=== PATIENT | male | born 1955 | race Caucasian/White ===

== ENCOUNTER 2017-01-15 16:20 | Emergency (ER) | payer BC, OTHER ==
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
[2017-01-15] MEDS ORDERED: HYDROmorphone 1 MG/ML 1 ML SYRINGE IVP STA (16:43)
[2017-01-15] MEDS ORDERED: SODIUM CHLORIDE 0.9% 1,000 ML IV SCH (16:45)
[2017-01-15 16:57] LABS: Basophils % (A) 0 %; CH 32.7; Eosinophils # (A) 0.1 k/uL (0-0.7); Eosinophils % (A) 1 %; HCT 40.9 % (39.0-53.0); HDW 2.68; Luc % (Auto) 2; Lymphocytes % (A) 18 %; MCH 31.2 pg (25.0-35.0); MCHC 34.3 g/dL (31.0-37.0); MCV 91.2 fL (80.0-100.0); Monocytes # (A) 0.3 k/uL (0-1.0); Monocytes % (A) 5 %; Neutrophils # (A) 3.9 k/uL (1.3-7.7); Neutrophils % (A) 73 %; RBC 4.48 m/uL (4.30-5.90); RDW 12.5 % (11.5-15.5); WBC 5.3 k/uL (3.8-10.6); WBC (Perox) 5.24
[2017-01-15 17:02] LABS: INR 1.1 (<1.1); Partial Thromboplastin Time 26.7 sec (22.0-30.0); Prothrombin Time 11.1 sec (9.0-12.0)
[2017-01-15 17:03] LABS: ALT 32 U/L (21-72); AST 28 U/L (17-59); Alkaline Phosphatase 83 U/L (38-126); Anion Gap 14 mmol/L; Blood Urea Nitrogen 16 mg/dL (9-20); Calcium 9.6 mg/dL (8.4-10.2); Carbon Dioxide 23 mmol/L (22-30); Chloride 102 mmol/L (98-107); Creatine Kinase 248 U/L (55-170); Glucose 105 mg/dL (74-99); Non-African American GFR(MDRD) >60 (>60 ml/min/1.73 sqM); Potassium 3.8 mmol/L (3.5-5.1); Sodium 139 mmol/L (137-145); Total Bilirubin 0.9 mg/dL (0.2-1.3); Total Protein 7.3 g/dL (6.3-8.2)
[2017-01-15] MEDS ORDERED: ONDANSETRON 4 MG/2 ML VIAL IM STA (17:21)
--- NOTE | 2017-01-15 17:27 | CT ---
EXAMINATION TYPE: CT brain cspine wo con DATE OF EXAM: 01/15/2017 5:17 PM COMPARISON: CT brain and cervical spine June 21, 2016 HISTORY: Pt states of crushing injury to leg today. C/O BERKOWITZ. CT DLP: 540.0 mGycm. Automated Exposure Control for Dose Reduction was Utilized. TECHNIQUE: CT scan of the head and cervical spine are performed without contrast. FINDINGS: There is no acute intracranial hemorrhage, mass effect, or midline shift identified. The ventricles and sulci are within normal limits in size. The globes are intact and the visualized sin uses are clear. The calvarium is intact. Cervical spine is visualized in its entirety from C1 through upper thoracic levels and demonstrates s traightened alignment without evidence of acute fracture or dislocation. Prevertebral soft tissue ap pears within normal limits. The C1-C2 articulation is within normal limits on the coronal images. Vertebral body heights are maintained. There is mild to moderate spurring and disc space narrowiat-C6 and C6-C7 levels redemonstrated. Spinal canal is fairly well preserved. Review of axial images shows no new large new disc herniation. Lung apices are clear bilaterally. Thyroid gland is normal in size . Surgical change through healed mandible is redemonstrated. IMPRESSION: 1. There is no acute fracture or dislocation evident in the cervical spine. 2. No acute intracranial hemorrhage, mass effect, or midline shift is seen.
[2017-01-15] MEDS ORDERED: diphenhydrAMINE 50 MG/ML 1 ML VIAL IVP STA (18:11)
[2017-01-15] MEDS ORDERED: METOCLOPRAMIDE 5 MG/ML 2 ML VIAL IVP STA (18:11)
--- NOTE | 2017-01-15 18:27 | XR ---
EXAMINATION TYPE: XR hand complete LT DATE OF EXAM: 01/15/2017 6:09 PM CLINICAL HISTORY: Left hand pain after injury. TECHNIQUE: Frontal, lateral and oblique images of the left hand are obtained. COMPARISON: None. FINDINGS: There is no acute fracture/dislocation evident in the left hand. The joint spaces in the l eft hand appear within normal limits. Metallic ring overlies the fourth proximal phalanx mid shaft le jose. The overlying soft tissue appears unremarkable. IMPRESSION: There is no acute fracture or dislocation in the left hand.
--- NOTE | 2017-01-15 18:29 | XR ---
EXAMINATION TYPE: XR chest 1V DATE OF EXAM: 01/15/2017 6:09 PM COMPARISON: Prior chest x-ray June 21, 2016 HISTORY: Chest pain. TECHNIQUE: Single AP portable frontal upright view of the chest is obtained. FINDINGS: There is no focal air space opacity, pleural effusion, or pneumothorax seen. The cardiac silhouette size is within normal limits with atherosclerotic change in the aortic knob. The osseous structures are intact. IMPRESSION: No acute process.
--- NOTE | 2017-01-15 18:31 | XR ---
EXAMINATION TYPE: XR knee complete LT, XR tibia fibula LT, XR ankle complete LT DATE OF EXAM: 01/15/2017 6:09 PM CLINICAL HISTORY: Injury with pain TECHNIQUE: Three views of the left ankle and knee are obtained. 2 views of left leg are acquired COMPARISON: None. FINDINGS: There is no acute fracture/dislocation evident in left knee. There is mild joint space los s patellofemoral compartment. There is moderate-sized spur superiorly and anteriorly at distal quadr iceps tendon attachment. Some tibial condylar spurring is present. Increased density suprapatellar bu rsa is suggestive of moderate joint effusion, nonspecific finding. Images of left leg show no acute fracture or dislocation. Overlying soft tissue is unremarkable. Images of left ankle show no acute fracture or dislocation. Ankle mortise symmetry is preserved. Over lying soft tissue is unremarkable. IMPRESSION: There is no acute fracture or dislocation in the left ankle, leg, or knee.
--- NOTE | 2017-01-15 18:32 | XR ---
EXAMINATION TYPE: XR Hip LT and AP Pelvis DATE OF EXAM: 01/15/2017 6:09 PM COMPARISON: NONE HISTORY: Injury with pelvic and left hip pain TECHNIQUE: A single AP view of the pelvis is obtained. Two views of the left hip are obtained. FINDINGS: There is no acute fracture/dislocation evident in the pelvis. There is mild acetabular spu rring in both hips. There is cortical bump head neck junction bilaterally suggesting pincher-type VIKTORIA . Subchondral cystic change in both proximal femurs is noted. Sacroiliac joints are maintained. The o verlying soft tissue appears unremarkable. Two views of left hip show no acute fracture or dislocation. No focal lytic or sclerotic lesion seen in the proximal left femur. The overlying soft tissue is unremarkable. IMPRESSION: There is no acute fracture or dislocation in the pelvis or left hip.
[2017-01-15] MEDS ORDERED: RX INFO: IV CONTRAST WAS GIVEN 1 EACH MISC MISCELLANE PRN (18:39)
--- NOTE | 2017-01-15 20:15 | CT ---
EXAMINATION TYPE: CT angio lower extremity LT DATE OF EXAM: 01/15/2017 7:54 PM COMPARISON: NONE HISTORY: Pt states of crushing injury to left leg. Pain posterior to knee. CT DLP: 333.0 mGycm Automated exposure control for dose reduction was used. TECHNIQUE: Performed with IV Contrast, patient injected with 125 mL of Omnipaque 350. CTA exam with Three-D isabella nstructed images created on independent workstation and reviewed . FINDINGS: There is satisfactory flow seen in the distal superficial femoral artery extending in through the pop liteal artery in the left lower extremity. There is satisfactory bifurcation into the anterior tibial and tibial peroneal trunks. There is satisfactory subsequent bifurcation into the posterior tibial a nd peroneal arteries. There is good three-vessel flow to the distal leg level. There is no suspicious extravasation or focal hematoma to suggest arterial vascular injury. There is no acute fracture or dislocation of visualized distal femur or the visualized tibia and fibu la. There is asymmetric moderate size left patellar joint effusion. There is small size right suprapa tellar joint effusion. Muscle bulk in left leg is preserved. There is mild subcutaneous edema and sof t tissue swelling anterior medially over the left proximal diaphysis of the tibia near axial image 13 4 and coronal image 16 consistent with soft tissue contusion injury at this level. There is slightly poor contrast bolus or timing in the right lower extremity which is within normal l imits through trifurcation and then suboptimally evaluated below this. IMPRESSION: NO CTA EVIDENCE FOR SIGNIFICANT ARTERIAL VASCULAR INJURY IN THE LEFT LOWER EXTREMITY.
[2017-01-15 20:27] VITALS: BP 125/63; PULSE 69; RESP 18; TEMP 97.8
[2017-01-15] MEDS ORDERED: HYDROcodone/APAP 5-325MG 1 EACH TAB PO STA (21:18)
== END 2017-01-15 21:32 | disposition home or self-care (01) ==
LOC: EC 16:20
DX: S83.92XA Sprain of unspecified site of left knee, initial encounter (principal); I45.10 Unspecified right bundle-branch block; R11.0 Nausea; X50.1XXA Overexertion from prolonged static or awkward postures, initial encounter; Y93.89 Activity, other specified; Y92.59 Other trade areas as the place of occurrence of the external cause
CPT/HCPCS: 36415; 93005; 80053; 82550; 85025; 85610; 85730; 71010; 73502; 73130; 73590; 73562; 73610; 72125; 70450; 73706; 99285; 96374; 96375 ×2; 96361 ×5; 96372; J1200; J2765; Q9967; J2405; J1170

== ENCOUNTER 2018-07-20 18:12 | Emergency (ER) | payer OTHER ==
[2018-07-20] MEDS ORDERED: MORPHINE SULFATE 4 MG/ML SYRINGE IV STA (18:27)
[2018-07-20] MEDS ORDERED: SODIUM CHLORIDE 0.9% 1,000 ML IV STA ×2 (18:27)
--- NOTE | 2018-07-20 18:31 | ED ---
General Adult HPI - General Chief complaint: Chest Pain Stated complaint: Chest Pain Time Seen by Provider: 07/20/18 18:27 Source: patient, RN notes reviewed, old records reviewed Mode of arrival: wheelchair Limitations: no limitations - History of Present Illness Initial comments: this is a 63-year-old male the ER for evaluation of chest pain. Patient is no medical history. Patient chest pain prior to arrival he did take aspirin at home. Patient states chest pain did resolve now here in the emergency room. No travel history no sick contacts no fevers. Patient has no prior history of cardiac disease or prior cardiac evaluation. - Related Data Home Medications Medication Instructions Recorded Confirmed Aspirin [Adult Low Dose Aspirin EC] 81 mg PO DAILY 07/20/18 07/20/18 Ibuprofen [Motrin Ib] 600 mg PO Q6H PRN 07/20/18 07/20/18 Allergies Allergy/AdvReac Type Severity Reaction Status Date / Time No Known Allergies Allergy Verified 07/20/18 19:02 Review of Systems ROS Statement: Those systems with pertinent positive or pertinent negative responses have been documented in the HPI. ROS Other: All systems not noted in ROS Statement are negative. Past Medical History Past Medical History: No Reported History History of Any Multi-Drug Resistant Organisms: None Reported Additional Past Surgical History / Comment(s): facial reconstruction 2007 Past Psychological History: No Psychological Hx Reported Smoking Status: Never smoker Past Alcohol Use History: Occasional Past Drug Use History: None Reported General Exam Limitations: no limitations General appearance: alert, in no apparent distress Head exam: Present: atraumatic, normocephalic, normal inspection Eye exam: Present: normal appearance, PERRL, EOMI. Absent: scleral icterus, conjunctival injection, periorbital swelling ENT exam: Present: normal exam, mucous membranes moist Neck exam: Present: normal inspection. Absent: tenderness, meningismus, lymphadenopathy Respiratory exam: Present: normal lung sounds bilaterally. Absent: respiratory distress, wheezes, rales, rhonchi, stridor Cardiovascular Exam: Present: regular rate, normal rhythm, normal heart sounds. Absent: systolic murmur, diastolic murmur, rubs, gallop, clicks GI/Abdominal exam: Present: soft, normal bowel sounds. Absent: distended, tenderness, guarding, rebound, rigid Extremities exam: Present: normal inspection, full ROM, normal capillary refill. Absent: tenderness, pedal edema, joint swelling, calf tenderness Back exam: Present: normal inspection Neurological exam: Present: alert, oriented X3, CN II-XII intact Psychiatric exam: Present: normal affect, normal mood Skin exam: Present: warm, dry, intact, normal color. Absent: rash Course Vital Signs 07/20/18 07/20/18 07/20/18 18:22 19:15 20:15 Temperature 98.2 F 98.3 F Pulse Rate 72 65 Pulse Rate [ 74 Lehr Cutter ] Respiratory 24 18 16 Rate Blood Pressure 141/79 140/83 O2 Sat by Pulse 100 98 Oximetry EKG Findings - EKG Comments: EKG Findings:: EKG shows sinus rhythm rate of 72, NC 160, QRS 108, QTc 429 Medical Decision Making - Medical Decision Making 63 male with nonspecific chest pain. Take aspirin prior to arrival. No medical history no history of heart disease. Troponin negative. The ER CT negative. Patient states is a symptomatically can be discharged home - Lab Data Result diagrams: 07/20/18 18:50 07/20/18 18:50 Lab Results 07/20/18 07/20/18 07/20/18 Range/Units 18:50 18:50 18:50 WBC 4.6 (3.8-10.6) k/uL RBC 4.66 (4.30-5.90) m/uL Hgb 14.5 (13.0-17.5) gm/dL Hct 43.2 (39.0-53.0) % MCV 92.7 (80.0-100.0) fL MCH 31.1 (25.0-35.0) pg MCHC 33.5 (31.0-37.0) g/dL RDW 12.4 (11.5-15.5) % Plt Count 203 (150-450) k/uL Neutrophils % 62 % Lymphocytes % 25 % Monocytes % 8 % Eosinophils % 3 % Basophils % 0 % Neutrophils # 2.9 (1.3-7.7) k/uL Lymphocytes # 1.1 (1.0-4.8) k/uL Monocytes # 0.4 (0-1.0) k/uL Eosinophils # 0.1 (0-0.7) k/uL Basophils # 0.0 (0-0.2) k/uL PT (9.0-12.0) sec INR (<1.2) APTT (22.0-30.0) sec D-Dimer (<0.60) mg/L FEU Sodium 139 (137-145) mmol/L Potassium 4.2 (3.5-5.1) mmol/L Chloride 103 (98-107) mmol/L Carbon Dioxide 24 (22-30) mmol/L Anion Gap 12 mmol/L BUN 16 (9-20) mg/dL Creatinine 0.94 (0.66-1.25) mg/dL Est GFR (CKD-EPI)AfAm >90 (>60 ml/min/1.73 sqM) Est GFR (CKD-EPI)NonAf 88 (>60 ml/min/1.73 sqM) Glucose 90 (74-99) mg/dL Calcium 9.4 (8.4-10.2) mg/dL Magnesium 1.9 (1.6-2.3) mg/dL Total Bilirubin 0.6 (0.2-1.3) mg/dL AST 22 (17-59) U/L ALT 20 L (21-72) U/L Alkaline Phosphatase 75 (38-126) U/L Total Creatine Kinase 142 (55-170) U/L CK-MB (CK-2) 1.3 (0.0-2.4) ng/mL CK-MB (CK-2) Rel Index 0.9 Troponin I <0.012 (0.000-0.034) ng/mL NT-Pro-B Natriuret Pep pg/mL Total Protein 7.3 (6.3-8.2) g/dL Albumin 4.4 (3.5-5.0) g/dL Lipase 148 (23-300) U/L 07/20/18 07/20/18 Range/Units 18:50 18:50 WBC (3.8-10.6) k/uL RBC (4.30-5.90) m/uL Hgb (13.0-17.5) gm/dL Hct (39.0-53.0) % MCV (80.0-100.0) fL MCH (25.0-35.0) pg MCHC (31.0-37.0) g/dL RDW (11.5-15.5) % Plt Count (150-450) k/uL Neutrophils % % Lymphocytes % % Monocytes % % Eosinophils % % Basophils % % Neutrophils # (1.3-7.7) k/uL Lymphocytes # (1.0-4.8) k/uL Monocytes # (0-1.0) k/uL Eosinophils # (0-0.7) k/uL Basophils # (0-0.2) k/uL PT 10.4 (9.0-12.0) sec INR 1.1 (<1.2) APTT 26.5 (22.0-30.0) sec D-Dimer 0.20 (<0.60) mg/L FEU Sodium (137-145) mmol/L Potassium (3.5-5.1) mmol/L Chloride (98-107) mmol/L Carbon Dioxide (22-30) mmol/L Anion Gap mmol/L BUN (9-20) mg/dL Creatinine (0.66-1.25) mg/dL Est GFR (CKD-EPI)AfAm (>60 ml/min/1.73 sqM) Est GFR (CKD-EPI)NonAf (>60 ml/min/1.73 sqM) Glucose (74-99) mg/dL Calcium (8.4-10.2) mg/dL Magnesium (1.6-2.3) mg/dL Total Bilirubin (0.2-1.3) mg/dL AST (17-59) U/L ALT (21-72) U/L Alkaline Phosphatase (38-126) U/L Total Creatine Kinase (55-170) U/L CK-MB (CK-2) (0.0-2.4) ng/mL CK-MB (CK-2) Rel Index Troponin I (0.000-0.034) ng/mL NT-Pro-B Natriuret Pep 77 pg/mL Total Protein (6.3-8.2) g/dL Albumin (3.5-5.0) g/dL Lipase (23-300) U/L - Radiology Data Radiology results: report reviewed (CTA chest CT abdomen pelvis negative for acute disease), image reviewed Disposition Clinical Impression: Chest pain Disposition: HOME SELF-CARE Condition: Good Instructions: Chest Pain (ED) Is patient prescribed a controlled substance at d/c from ED?: No Referrals: Vamsi Brennan DO [Primary Care Provider] - 1-2 days
[2018-07-20] MEDS ORDERED: ONDANSETRON 4 MG/2 ML VIAL IVP STA (18:37)
[2018-07-20 19:05] LABS: Basophils % (A) 0 %; Eosinophils # (A) 0.1 k/uL (0-0.7); Eosinophils % (A) 3 %; HCT 43.2 % (39.0-53.0); HGB 14.5 gm/dL (13.0-17.5); Lymphocytes # (A) 1.1 k/uL (1.0-4.8); Lymphocytes % (A) 25 %; MCH 31.1 pg (25.0-35.0); MCHC 33.5 g/dL (31.0-37.0); MCV 92.7 fL (80.0-100.0); Monocytes # (A) 0.4 k/uL (0-1.0); Monocytes % (A) 8 %; Neutrophils # (A) 2.9 k/uL (1.3-7.7); Neutrophils % (A) 62 %; Platelet Count 203 k/uL (150-450); RBC 4.66 m/uL (4.30-5.90); RDW 12.4 % (11.5-15.5); WBC 4.6 k/uL (3.8-10.6)
[2018-07-20 19:11] LABS: ALT 20 U/L (21-72); AST 22 U/L (17-59); Albumin 4.4 g/dL (3.5-5.0); Alkaline Phosphatase 75 U/L (38-126); Anion Gap 12 mmol/L; Blood Urea Nitrogen 16 mg/dL (9-20); Calcium 9.4 mg/dL (8.4-10.2); Carbon Dioxide 24 mmol/L (22-30); Chloride 103 mmol/L (98-107); Glucose 90 mg/dL (74-99); Lipase 148 U/L (23-300); Magnesium 1.9 mg/dL (1.6-2.3); Potassium 4.2 mmol/L (3.5-5.1); Sodium 139 mmol/L (137-145); Total Bilirubin 0.6 mg/dL (0.2-1.3); Total Protein 7.3 g/dL (6.3-8.2)
[2018-07-20 19:15] LABS: D-Dimer 0.2 mg/L FEU (<0.60); INR 1.1 (<1.2); Partial Thromboplastin Time 26.5 sec (22.0-30.0); Prothrombin Time 10.4 sec (9.0-12.0)
[2018-07-20 19:22] LABS: Creatine Kinase 142 U/L (55-170)
[2018-07-20 19:36] LABS: Creatine Kinase MB 1.3 ng/mL (0.0-2.4); Troponin I <0.012 ng/mL (0.000-0.034)
--- NOTE | 2018-07-20 19:41 | CT ---
EXAMINATION TYPE: CT angio chest DATE OF EXAM: 07/20/2018 7:24 PM COMPARISON: None HISTORY: Right sided chest pain and right arm tingling. CT DLP: 219.5 mGycm Automated exposure control for dose reduction was used. CONTRAST: CTA scan of the thorax is performed with IV Contrast, patient injected with 100 mL of Isovue 370, pul monary embolism protocol. There are 3-D post processed images.. FINDINGS: There is some interstitial density at the posterior lung bases. There is no pulmonary consolidation. There is no pericardial effusion. There is no pleural effusion. There is normal contrast opacificatio n of the pulmonary arteries. There are no filling defects. There is aneurysm of the ascending aorta m easures 4.2 cm. There is no sign of dissection. The bony thorax appears intact. There is spurring in the thoracic spine. There is no mediastinal adenopathy. There are no hilar masses. 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 NO EVIDENCE OF PULMONARY EMBOLISM.
--- NOTE | 2018-07-20 19:45 | CT ---
EXAMINATION TYPE: CT abdomen pelvis w con DATE OF EXAM: 07/20/2018 COMPARISON: None HISTORY: Right sided chest pain and right arm tingling. CT DLP: 1393.2 mGycm Automated exposure control for dose reduction was used. TECHNIQUE: Helical acquisition of images was performed from the lung bases through the pelvis. CONTRAST: Performed without Oral Contrast and with IV Contrast, patient injected with mL of Isovue 370. FINDINGS: There is minimal subsegmental atelectasis at the right lung base. Heart size is normal. There is no h iatal hernia. Liver spleen pancreas gallbladder appear normal. Bile ducts are not dilated. There is no adrenal mass. Stomach appears normal. Kidneys show satisfactory contrast opacification. T here is no hydronephrosis. Ureters are not dilated. There is no retroperitoneal adenopathy. Bladder d istends smoothly. There is no pelvic mass. Appendix appears normal. Bony structures appear intact. Th ere is no evidence of inguinal hernia. The abdominal soft tissues are unremarkable. There is no ascit es. There is no evidence of pneumoperitoneum. IMPRESSION: NEGATIVE CT SCAN OF THE ABDOMEN AND PELVIS. NORMAL APPENDIX.
[2018-07-20 20:15] VITALS: BP 140/83; RESP 16; TEMP 98.3
[2018-07-20 20:19] VITALS: PULSE 74
== END 2018-07-20 20:15 | disposition home or self-care (01) ==
LOC: EC 18:12
DX: R07.9 Chest pain, unspecified (principal); Z79.82 Long term (current) use of aspirin
CPT/HCPCS: 99285; 96374; 96375; 96361 ×2; 36415; 93005; 85379; 83880; 80053; 82550; 82553; 83690; 83735; 84484; 85025; 85610; 85730; 71275; 74177; J2270; J2405; Q9967

== ENCOUNTER 2018-10-05 06:11 | Day surgery (SDC) | payer OTHER ==
[2018-10-02 13:25] VITALS: BMI 22.4
[2018-10-05 06:47] VITALS: RESP 16; TEMP 97.7
[2018-10-05] MEDS ORDERED: SODIUM CHLORIDE 0.9% 500 ML 500 ML IV ONE (06:48)
[2018-10-05] MEDS: BENZOCAINE SPRAY 1 CAN MUCOUS MEM ONE ×2 (07:32→07:38)
[2018-10-05] MEDS ORDERED: MIDAZOLAM 2 MG/2 ML VIAL IV ONE ×2 (07:46→07:47)
[2018-10-05] MEDS ORDERED: fentaNYL (PF) 50 MCG/ML 2 ML AMP IV ONE (07:47)
[2018-10-05] MEDS ORDERED: SODIUM CHLORIDE 0.9% 1,000 ML IV SCH (08:15)
--- NOTE | 2018-10-05 08:48 | ECHOT ---
TRANSESOPHAGEAL ECHOCARDIOGRAM INDICATION: Evaluation of aortic valve. PROCEDURE: After explaining the procedure to the patient, its risks and complications, blood pressure, heart rate, O2 saturation was monitored. The throat was sprayed with Cetacaine. He received 3 mg intravenous of Versed and 50 mcg intravenous fentanyl. The probe introduced esophagus without difficulty. Images were obtained. Following that, the probe was removed. There was no immediate complication. FINDINGS: The left atrial size is normal. The left atrial appendage is normal. Left ventricular size and systolic function normal. The aortic valve is a bicuspid valve with a raphe and preserved opening with the aortic valve area of 3.7 centimeter square. The mitral valve, tricuspid valve are normal. The descending thoracic aorta appears to be normal. Contrast bubble study revealed no evidence of shunting across the interatrial septum with Valsalva maneuver. There was no pericardial effusion. Doppler pulse wave and color Doppler obtained and revealed a mild to moderate aortic with mild mitral and tricuspid regurgitation. There was no shunting by color Doppler study. CONCLUSION: 1. Normal left ventricular size and systolic function. 2. Bicuspid aortic valve with preserved opening and mild to moderate aortic regurgitation. 3. Mild mitral and tricuspid regurgitation. 4. Normal appearance of the descending thoracic aorta with dilatation of the ascending aorta measuring up to 4 cm in diameter. 5. No shunting across the interatrial septum. MMODL / IJN: [id number] /
[2018-10-05 09:09] VITALS: BP 124/77; PULSE 69
== END 2018-10-05 09:04 | disposition home or self-care (01) ==
LOC: CATHCVL 06:11
PROVIDERS: ATTEND Internal Medicine Interventional Cardiology
DX: Q23.1 Congenital insufficiency of aortic valve (principal); I08.1 Rheumatic disorders of both mitral and tricuspid valves; I71.2 Thoracic aortic aneurysm, without rupture; R07.89 Other chest pain; I73.9 Peripheral vascular disease, unspecified
CPT/HCPCS: 93312; 93320; 93325; J2250; J3010

== ENCOUNTER → 2019-10-18 | Outpatient (CLI) | payer OTHER ==
--- NOTE | 2019-10-18 10:51 | CT ---
EXAMINATION TYPE: CT angio chest DATE OF EXAM: 10/18/2019 COMPARISON: 07/20/2018 HISTORY: I71.2 Thoracic aortic aneurysm, without rupture CT DLP: mGycm CONTRAST: CTA thoracic aorta with 3-D reconstruction is performed without Oral Contrast and with IV Contrast, p atient injected with 100 mL of Isovue 300. Contrast CTA of the thoracic aorta was performed from the lung apex through the upper abdomen. 3D re construction imaging obtained at a separate workstation. CT Chest: THORACIC AORTA: Ascending thoracic aortic aneurysm is stable at 4.2 cm AP dimension. Thoracic aorta a nd descending thoracic aorta are of normal caliber. Mild atheromatous changes seen. There is no evid ence for dissection or periaortic collection. LUNGS: The lungs are clear and free of infiltrate or atelectasis. No pulmonary nodule or mass is det ected. No pleural effusion or CT evidence of interstitial lung disease. MEDIASTINUM: No evidence for mediastinal hematoma. The heart is not enlarged. No evidence for med iastinal mass or adenopathy. HILAR STRUCTURES: No evidence for mass. No hilar adenopathy is appreciated. OTHER: No significant abnormality. IMPRESSION- Ascending thoracic aortic aneurysm is stable at 4.2 cm AP dimension.
== END | disposition home or self-care (01) ==
LOC: RADCTMAIN 08:52
PROVIDERS: ATTEND Internal Medicine Interventional Cardiology
DX: I71.2 Thoracic aortic aneurysm, without rupture (principal)
CPT/HCPCS: 71275; Q9967

== ENCOUNTER → 2020-03-24 | Outpatient (CLI) | payer OTHER ==
--- NOTE | 2020-03-24 09:45 | MR ---
EXAMINATION TYPE: MR shoulder RT wo con DATE OF EXAM: 03/24/2020 COMPARISON: None HISTORY: Rt shoulder pain x 5 years, no trauma TECHNIQUE: Multiplanar, multisequence imaging of the right shoulder is performed without contrast. FINDINGS: Motion artifact limits the examination. Rotator Cuff: Partial thickness insertional fiber articular surface tear is seen of the anterior fibe rs of the supraspinatus measuring 0.6 x 0.5 cm. Bursal surface fiber fraying is also seen as well as an additional small articular surface tear measuring 0.4 x 0.5 cm of the distal fibers more posterior ly. Findings are superimposed upon moderate tendinopathy. Partial-thickness 8mm bursal surface tear is seen of the distal fibers of the infraspinatus. Bursal s urface fiber fraying is also seen. Fenestration is seen at the insertion of the infraspinatus fibers of the humeral head. Mild underlying tendinopathy. Teres minor is intact and unremarkable in signal and muscle volume. There is a partial thickness intrasubstance tear of the distal fibers of the infraspinatus measuring 0.9 x 0.6 cm. Insertional fibers are intact. Acromioclavicular Joint: There is moderate acromioclavicular arthropathy with some downsloping of the acromion. Marginal osteophytes from the distal clavicle and distal acromion have slight mass effect on the supraspinatus creating mild internal impingement. Glenohumeral Joint: Moderate arthropathy with joint space narrowing, subchondral cysts, and protubera nt osteophyte of the anterior inferior humeral head. Labrum: There is a suspected superior labral anterior posterior and suspected tear of the posterior i nferior glenoid labrum with global labral degeneration. Tears could be confirmed with MR arthrogram. Biceps Tendon: The long head of biceps is in normal location within bicipital groove. Minimal tendino sis of the insertional site of the biceps tendon on the biceps anchor. Bone marrow signal: No focal abnormal marrow signal is appreciated. IMPRESSION: 1. Partial-thickness insertional articular surface tear of the anterior fibers of the supraspinatus m easuring 0.6 x 0.5 cm. 2. Partial-thickness articular surface tear of the posterior distal fibers of the supraspinatus measu ring 0.4 x 0.5 cm. 3. Moderate supraspinatus tendinopathy with bursal surface fiber fraying. 4. Partial-thickness low-grade 8mm bursal surface tear of the distal fibers of the infraspinatus with fenestration of the insertion of the infraspinatus fibers and mild tendinopathy. 5. Partial thickness intrasubstance tear of the distal fibers of the infraspinatus measuring 2.9 x 0. 6 cm with intact insertional fibers. 6. Suspected superior labral anterior to posterior tear and inferior posterior glenoid labral tear wi th global labral degeneration that could be confirmed with MR arthrogram. 7. Moderate acromioclavicular arthropathy with mild internal impingement on the supraspinatus. 8. Minimal insertional tendinosis of the biceps tendon at the biceps anchor.
== END | disposition home or self-care (01) ==
LOC: RADMRIMAIN 08:09
PROVIDERS: ATTEND Orthopaedic Surgery Sports Medicine
DX: M75.111 Incomplete rotator cuff tear or rupture of right shoulder, not specified as traumatic (principal); M19.011 Primary osteoarthritis, right shoulder

== ENCOUNTER 2020-09-24 21:16 | Emergency (ER) | payer OTHER ==
[2020-09-24 21:22] VITALS: RESP 18; TEMP 98.2
[2020-09-24] MEDS ORDERED: MORPHINE SULFATE 4 MG/ML SYRINGE IV STA (21:30)
[2020-09-24] MEDS ORDERED: SODIUM CHLORIDE 0.9% 1,000 ML IV STA (21:30)
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
[2020-09-24 21:58] LABS: Basophils % (A) 0 %; Eosinophils # (A) 0.2 k/uL (0-0.7); Eosinophils % (A) 4 %; HCT 40.8 % (39.0-53.0); HGB 14.5 gm/dL (13.0-17.5); Lymphocytes # (A) 1.3 k/uL (1.0-4.8); Lymphocytes % (A) 24 %; MCH 32.9 pg (25.0-35.0); MCHC 35.6 g/dL (31.0-37.0); MCV 92.5 fL (80.0-100.0); Mean Platelet Volume 7.2; Monocytes # (A) 0.5 k/uL (0-1.0); Monocytes % (A) 9 %; Neutrophils # (A) 3.3 k/uL (1.3-7.7); Neutrophils % (A) 62 %; Platelet Count 185 k/uL (150-450); RBC 4.41 m/uL (4.30-5.90); RDW 11.9 % (11.5-15.5); WBC 5.3 k/uL (3.8-10.6)
[2020-09-24 22:06] LABS: Partial Thromboplastin Time 26.6 sec (22.0-30.0); Potassium 4.1 mmol/L (3.5-5.1); Prothrombin Time 10.4 sec (9.0-12.0)
[2020-09-24 22:07] LABS: ALT 22 U/L (4-49); AST 22 U/L (17-59); African American GFR (CKD) >90 (>60 ml/min/1.73 sqM); Albumin 4.2 g/dL (3.5-5.0); Alkaline Phosphatase 71 U/L (38-126); Anion Gap 7 mmol/L; Blood Urea Nitrogen 14 mg/dL (9-20); Calcium 9.3 mg/dL (8.4-10.2); Carbon Dioxide 26 mmol/L (22-30); Chloride 104 mmol/L (98-107); Glucose 107 mg/dL (74-99); Non-African American GFR(CKD) 84 (>60 ml/min/1.73 sqM); Sodium 137 mmol/L (137-145); Total Bilirubin 0.5 mg/dL (0.2-1.3); Total Protein 7.2 g/dL (6.3-8.2)
--- NOTE | 2020-09-24 22:29 | CT ---
EXAMINATION TYPE: CT angio chest DATE OF EXAM: 09/24/2020 COMPARISON: 10/18/2019 HISTORY: Chest pain, hx of ascending aortic aneurysm. CT DLP: 329.5 mGycm Automated exposure control for dose reduction was used. CONTRAST: Performed with IV Contrast, patient injected with 100ml mL of Isovue 370. There are 3-D post processed images. There is minimal subsegmental atelectasis at the lung bases. Heart size is normal. There is no pleura l effusion. There is no pericardial effusion. There are no hilar masses. There is no mediastinal irma opathy. There is aneurysm of the ascending aorta that measures 4.5 cm. There is no dissection. There is normal contrast opacification of the pulmonary arteries. There are no filling defects. The thoracic spine shows degenerative spur formation. There is 20% anterior wedging of T5 vertebra. F racture appears old. Sternum is intact. Upper abdominal soft tissues are intact. IMPRESSION: No evidence of pulmonary embolism. 4.5 cm aneurysm of ascending aorta increased slightly in size comp ared to old exam. Previous exam measures 4.1 cm.
[2020-09-24 22:40] VITALS: BP 141/80; PULSE 78
== END 2020-09-24 23:07 | disposition home or self-care (01) ==
LOC: EC 21:16
DX: I71.2 Thoracic aortic aneurysm, without rupture (principal)
CPT/HCPCS: 36415; 93005; 83880; 80053; 83735; 84484; 85025; 85610; 85730; 71275; 99285; 96374; 96361; J2270; Q9967

== ENCOUNTER → 2022-10-17 | Outpatient (CLI) | payer MEDICARE, BC ==
--- NOTE | 2022-10-17 16:51 | CT ---
EXAMINATION TYPE: CT angio chest DATE OF EXAM: 10/17/2022 COMPARISON: 09/24/2020 HISTORY: THORACIC AORTA ANEURYSM CT DLP: 522.8 mGycm Automated exposure control for dose reduction was used. Contrast: None Technique: Axial images 5 mm thick sections. Reconstructed images in the coronal plane. Pre and postc ontrast imaging is performed. FINDINGS: Portion of the thyroid visualized is normal. There is a 3 vessel arch. The ascending thoracic aorta i s dilated measuring 4.6 cm is essentially stable from comparison. Aortic arch and descending thoracic aorta taper normally through its visualized course. The abdominal aorta contains vascular calcificat ion. No dissection or aneurysmal dilatation is evident. Lung windows are clear. No suspicious mediastinal or hilar adenopathy is evident. IMPRESSION: 1. STABLE ASCENDING THORACIC AORTIC ANEURYSM OF 4.6 CM.
== END | disposition home or self-care (01) ==
LOC: RADCTMAIN 12:19
PROVIDERS: ATTEND Internal Medicine Interventional Cardiology
DX: I71.21 Aneurysm of the ascending aorta, without rupture (principal)
CPT/HCPCS: 82565; 84520; 71275; 36415; Q9967

== ENCOUNTER → 2023-06-09 | Outpatient (CLI) | payer MEDICARE ==
[2023-06-09 10:48] LABS: African American GFR (CKD) >90 (>60 ml/min/1.73 sqM); Blood Urea Nitrogen 9 mg/dL (9-20); Non-African American GFR(CKD) 84 (>60 ml/min/1.73 sqM)
--- NOTE | 2023-06-09 13:53 | CT ---
EXAMINATION TYPE: CT angio chest DATE OF EXAM: 06/09/2023 COMPARISON: 10/17/2022 HISTORY: ANEURYSM CT DLP: 610.6 mGycm CONTRAST: CTA thoracic aorta with 3-D reconstruction is performed and with IV Contrast, patient injected with 1 00 mL of Isovue 300. Contrast CTA of the thoracic aorta was performed from the lung apex through the upper abdomen. 3D re construction imaging obtained at a separate workstation. CT Chest: THORACIC AORTA: Ascending thoracic aortic aneurysm measuring 4.4 cm. The aortic arch and the descendi ng thoracic aorta are of normal caliber. Three-vessel aortic arch. No evidence for dissection or medi astinal hematoma. LUNGS: The lungs are clear and free of infiltrate or atelectasis. No pulmonary nodule or mass is det ected. No pleural effusion or CT evidence of interstitial lung disease. MEDIASTINUM: No evidence for mediastinal hematoma. The heart is not enlarged. No evidence for med iastinal mass or adenopathy. HILAR STRUCTURES: No evidence for mass. No hilar adenopathy is appreciated. OTHER: No significant abnormality. IMPRESSION- Allowing for differences in measurement ascending thoracic aortic aneurysm essentially unchanged.
== END | disposition home or self-care (01) ==
LOC: RADCTMAIN 10:03
PROVIDERS: ATTEND Internal Medicine Interventional Cardiology
DX: I71.21 Aneurysm of the ascending aorta, without rupture (principal)
CPT/HCPCS: 82565; 84520; 71275; 36415; Q9967

== ENCOUNTER → 2024-08-02 | Outpatient (CLI) | payer MEDICARE ==
[2024-08-02 07:50] LABS: African American GFR (CKD) 82 (>60 ml/min/1.73 sqM); Blood Urea Nitrogen 15 mg/dL (9-20); Non-African American GFR(CKD) 71 (>60 ml/min/1.73 sqM)
--- NOTE | 2024-08-04 20:28 | CT ---
CTA CHEST EXAMINATION TYPE: CT angio chest DATE OF EXAM: 08/02/2024 INDICATION: thoracic aortic aneurysm CT DLP: 632 mGycm, Automated exposure control for dose reduction was used. CONTRAST: Patient injected with 100 mL of Isovue 370. COMPARISON: 1123 TECHNIQUE: CT of the chest is performed on a spiral scan at 2 mm thick sections. Study is performed with intravenous contrast timed for evaluation for thoracic aneurysm. This will limit additional por tions of the evaluation. 3-D MIP images reconstructed by the technologist are reviewed on the [facility] er in the coronal and sagittal planes. FINDINGS: Thoracic aorta tapers normally throughout its visualized course. There is a three-vessel arch. Thoracic aorta at the aortic arch is 2.2 cm. Descending thoracic aorta proximally is 3.1 cm No mediastinal or hilar adenopathy enlarged by CT criteria is evident. The ascending aorta diameter at the level of the main pulmonary artery is 4.1 cm. The main pulmonary artery diameter at the bifurcation is 2.1 cm. Aortic root measures 3.6 cm. Descending thoracic aort a at the diaphragm measures 2.4 cm. Lung windows are clear. Limited CT sections were through the upper abdomen. Upper abdomen appears unremarkable. IMPRESSION: 1. Ascending thoracic aortic aneurysm 4.1 cm. 2. Proximal descending thoracic aorta is slightly prominent over the aortic arch measuring 3.1 cm. Th e descending thoracic aorta tapers to its visualized course. [facility], Workstation: [facility], 08/04/2024 8:26 PM
== END | disposition home or self-care (01) ==
LOC: RADCTMAIN 07:15
PROVIDERS: ATTEND Internal Medicine Interventional Cardiology
DX: I71.20 Thoracic aortic aneurysm, without rupture, unspecified (principal); I71.21 Aneurysm of the ascending aorta, without rupture
CPT/HCPCS: 82565; 84520; 71275; 36415; Q9967